=== PATIENT | male | born 1975 | race Caucasian/White ===

== ENCOUNTER 2021-08-31 10:57 | Emergency (ER) | payer BC, OTHER ==
[2021-08-31] MEDS ORDERED: MORPHINE 4 MG/ML SYR ONE (12:34)
[2021-08-31] MEDS ORDERED: METHYLPREDNISOLONE 125 MG INJ ONE (12:34)
[2021-08-31] MEDS ORDERED: LIDOCAINE 4% PATCH ONE (12:34)
[2021-08-31] MEDS ORDERED: ONDANSETRON 4 MG (ODT) TAB ONE (12:34)
--- NOTE | 2021-08-31 13:36 | EDPHYS ---
Physician Documentation [facility] Name: Lalito Tijerina Age: 46 yrs Sex: Male : 1975 Arrival Date: 08/31/2021 Time: 10:59 Bed 30 Private MD: ED Physician Eric Carpenter HPI: 08/31 12:19 This 46 yrs old Male presents to ER via Ambulatory with complaints of Leg pm1 Pain. 12:19 The patient presents with pain. The complaints affect the left hip radiating down left pm1 leg. Context: The problem was sustained at home, resulted from Chronic back pain, the patient can fully bear weight, the patient is able to ambulate. Onset: The symptoms/episode began/occurred 2 week(s) ago. Modifying factors: The symptoms are alleviated by Positioning left leg and hip. the symptoms are aggravated by movement. Associated signs and symptoms: Pertinent positives: numbness, Pertinent negatives calf tenderness, fever, Incontinence. Treatment prior to arrival includes: over the counter medications, NSAIDS, And left over codeine, tramadol, Magness. Severity of symptoms: in the emergency department the symptoms are actually worse. The patient has experienced similar episodes in the past, chronically, today's symptoms are similar, to previous Herniation of lumbar disc requiring surgical intervention. The patient has not recently seen a physician, the patient's primary care provider is Dr. short. Historical: - Allergies: 11:48 No Known Allergies; vg1 - Home Meds: 11:48 losartan oral [Active]; vg1 - PMHx: 11:48 Hypertensive disorder; vg1 - PSHx: 11:48 Back; Right Knee; vg1 - Immunization history:: Adult Immunizations up to date, Client reports having NOT received the Covid vaccine. - Social history:: Smoking status: Patient denies any tobacco usage or history of. ROS: 12:19 Constitutional: Negative for fever, chills, and weight loss, Cardiovascular: Negative pm1 for chest pain, palpitations, and edema, Respiratory: Negative for shortness of breath, cough, wheezing, and pleuritic chest pain. 12:19 Abdomen/GI: Negative for abdominal pain, nausea, vomiting, diarrhea, and constipation. 12:19 Skin: Negative for injury, rash, and discoloration, Neuro: Negative for headache, weakness, numbness, tingling, and seizure. 12:19 MS/extremity: Positive for pain, of the left hip, with radiation down left leg. 12:19 All other systems are negative. Exam: 12:19 Constitutional: This is a well developed, well nourished patient who is awake, alert, pm1 and in no acute distress. Head/Face: Normocephalic, atraumatic. 12:19 Skin: Warm, dry with normal turgor. Normal color with no rashes, no lesions, and no evidence of cellulitis. 12:19 Eyes: Exam is negative for acute changes, Extraocular movements: no acute changes. 12:19 ENT: Exam is negative for acute changes, Mouth: no acute changes, Lips: normal, moist, Oral mucosa: normal, pink and intact, moist. 12:19 Cardiovascular: Exam negative for acute changes, Rate: normal, Rhythm: regular, Pulses: no pulse deficits are appreciated. 12:19 Respiratory: Exam negative for acute changes, respiratory distress, shortness of breath. 12:19 Musculoskeletal/extremity: Extremities: all appear grossly normal, with no appreciated pain with palpation, ROM: Patient with full active range of motion to right hip right knee right ankle, Circulation is intact in all extremities. the right leg and left leg Sensation intact. 12:19 Neuro: Exam negative for acute changes, Orientation: is normal, Mentation: is normal, Motor: is normal, moves all fours. Vital Signs: 11:44 BP 132 / 101; Pulse 90; Resp 18; Temp 98.9; Pulse Ox 100% ; Weight 115.67 kg; Height 5 vg1 ft. 9 in. (175.26 cm); Pain 10/10; 11:44 Body Mass Index 37.66 (115.67 kg, 175.26 cm) vg1 MDM: 11:52 Patient medically screened. pm1 12:01 Data reviewed: vital signs. Data interpreted: Pulse oximetry: on room air is 100 %. pm1 Interpretation: normal. 13:34 Counseling: I had a detailed discussion with the patient and/or guardian regarding: the pm1 historical points, exam findings, and any diagnostic results supporting the discharge/admit diagnosis, the need for outpatient follow up, for definitive care, a neurosurgeon, MRI through Neurosurgeon or PCP, to return to the emergency department if symptoms worsen or persist or if there are any questions or concerns that arise at home. 13:47 ED course: [place] reviewed. pm1 Administered Medications: 12:19 Drug: morphine 4 mg Route: IM; Site: left gluteus; tr6 12:19 Drug: Lidoderm Patch 5 % (700 mg/patch) 1 patches Route: Topical; Site: affected area; tr6 12:19 Drug: SOLU-Medrol (methylPREDNISolone sodium succinate) 125 mg Route: IM; Site: left tr6 gluteus; 12:19 Drug: Zofran (Ondansetron) 4 mg Route: PO; tr6 Disposition Summary: 08/31/21 13:35 Discharge Ordered Location: Home pm1 Problem: new pm1 Symptoms: have improved pm1 Condition: Stable pm1 Diagnosis - Lumbago with sciatica, left side pm1 Followup: pm1 - With: Emergency Department - When: As needed - Reason: Worsening of condition Followup: pm1 - With: Private Physician - When: 2 - 3 days - Reason: Recheck today's complaints, Continuance of care, Re-evaluation by your physician Followup: pm1 - With: Lalito Lorenzana MD - When: 2 - 3 days - Reason: Recheck today's complaints, Continuance of care, Re-evaluation by your physician Discharge Instructions: - Discharge Summary Sheet pm1 - Sciatica pm1 Forms: - Medication Reconciliation Form pm1 - Thank You Letter pm1 - Antibiotic Education pm1 - Prescription Opioid Use pm1 Prescriptions: - acetaminophen-codeine 300-15 mg Oral tablet - take 2 tablet by ORAL route every 6 hours As needed; 20 tablet; Refills: 0, pm1 Product Selection Permitted - Lidoderm 5 % Topical adhesive patch,medicated - apply 1 patch by TRANSDERMAL route once daily As needed On for 12 hours and off pm1 for 12 hours in a 24-hour period; 10 patch; Refills: 0, Product Selection Permitted - Prednisone 20 mg Oral Tablet - take 3 tablets by ORAL route once daily for 5 days; 15 tablet; Refills: 0, pm1 Product Selection Permitted Addendum: 09/04/2021 00:01 Co-signature as Attending Physician, Eric Carpenter MD. r n Signatures: Eric Carpenter MD MD rn Marinas, Patrick, JANAE INTRAOPERATIVE NEURO TECH pm1 Gabriela Bone RN RN vg1 Ramnanan, Mee, RN RN tr6
--- NOTE | 2021-08-31 13:36 | ER ---
Nurse's Notes [facility] Name: Lalito Tijerina Age: 46 yrs Sex: Male : 1975 Arrival Date: 08/31/2021 Time: 10:59 Bed 30 Private MD: Diagnosis: Lumbago with sciatica, left side Presentation: 08/31 11:44 Chief complaint: Patient states: "I had back sx 8 years ago and Marie had this same pain vg1 before. About two weeks ago my lower back began to feel sore and then this I woke up with my Left leg hurting really bad, it feels like I have a pinched nerve." Pt also states pain in Left hip, Left calf, toes on Left foot feel tingling/numb. Coronavirus screen: Vaccine status: Patient reports being unvaccinated. Ebola Screen: Patient negative for fever greater than or equal to 101.5 degrees Fahrenheit, and additional compatible Ebola Virus Disease symptoms. Initial Sepsis Screen: Does the patient meet any 2 criteria? No. Patient's initial sepsis screen is negative. Does the patient have a suspected source of infection? No. Patient's initial sepsis screen is negative. Risk Assessment: Do you want to hurt yourself or someone else? Patient reports no desire to harm self or others. Onset of symptoms was August 17, 2021. 11:44 Method Of Arrival: Ambulatory vg1 11:44 Acuity: FRANKIE 3 vg1 Triage Assessment: 11:48 General: Appears in no apparent distress. uncomfortable, Behavior is calm, cooperative. vg1 Pain: Complains of pain in left leg, left hip, left calf. Historical: - Allergies: 11:48 No Known Allergies; vg1 - Home Meds: 11:48 losartan oral [Active]; vg1 - PMHx: 11:48 Hypertensive disorder; vg1 - PSHx: 11:48 Back; Right Knee; vg1 - Immunization history:: Adult Immunizations up to date, Client reports having NOT received the Covid vaccine. - Social history:: Smoking status: Patient denies any tobacco usage or history of. Screenin:46 Abuse screen: Denies threats or abuse. Denies injuries from another. Nutritional tr6 screening: No deficits noted. Tuberculosis screening: No symptoms or risk factors identified. Fall Risk None identified. Assessment: 12:00 General: Appears uncomfortable, obese, Behavior is calm, cooperative, appropriate for tr6 age. Pain: Complains of pain in left glute Pain radiates to left leg. Neuro: No deficits noted. Cardiovascular: No deficits noted. Respiratory: No deficits noted. GI: No deficits noted. : No deficits noted. EENT: No deficits noted. Derm: No deficits noted. Musculoskeletal: Reports pain in left leg. 13:47 Reassessment: Patient states symptoms have improved. tr6 Vital Signs: 11:44 BP 132 / 101; Pulse 90; Resp 18; Temp 98.9; Pulse Ox 100% ; Weight 115.67 kg; Height 5 vg1 ft. 9 in. (175.26 cm); Pain 10/10; 11:44 Body Mass Index 37.66 (115.67 kg, 175.26 cm) vg1 ED Course: 10:59 Patient arrived in ED. mr 11:48 Triage completed. vg1 11:48 Arm band placed on. vg1 11:49 Mee Dockery RN is Primary Nurse. tr6 11:51 Ralf Russell NP is PHCP. pm1 11:51 Eric Carpenter MD is Attending Physician. pm1 13:35 Lalito Lorenzana MD is Referral Physician. pm1 13:46 No provider procedures requiring assistance completed. tr6 13:47 Patient has correct armband on for positive identification. tr6 13:47 Patient did not have IV access during this emergency room visit. tr6 Administered Medications: 12:19 Drug: morphine 4 mg Route: IM; Site: left gluteus; tr6 12:19 Drug: Lidoderm Patch 5 % (700 mg/patch) 1 patches Route: Topical; Site: affected area; tr6 12:19 Drug: SOLU-Medrol (methylPREDNISolone sodium succinate) 125 mg Route: IM; Site: left tr6 gluteus; 12:19 Drug: Zofran (Ondansetron) 4 mg Route: PO; tr6 Outcome: 13:35 Discharge ordered by . pm1 13:47 Discharged to home via wheelchair. tr6 13:47 Condition: improved 13:47 Discharge instructions given to patient, Instructed on discharge instructions, follow up and referral plans. medication usage, safety practices, Demonstrated understanding of instructions, follow-up care, medications, Prescriptions given X 3. 13:49 Patient left the ED. tr6 Signatures: Renetta Sanchez YvonneRalf, JANAE RN RECOVERY pm1 Gabriela Bone RN RN vg1 Mee Dockery RN RN tr6
[2021-08-31 13:56] VITALS: BP 132/101; TEMP 98.9; O2SAT 100
== END 2021-08-31 13:49 | disposition home or self-care (01) ==
LOC: ER 10:57
DX: M54.42 Lumbago with sciatica, left side (principal); I10 Essential (primary) hypertension
CPT/HCPCS: 96372; 99283; J2930

== ENCOUNTER 2021-09-07 08:24 | Emergency (ER) | payer BC ==
[2021-09-07] MEDS ORDERED: MORPHINE 4 MG/ML SYR ONE (09:35)
[2021-09-07] MEDS ORDERED: KETOROLAC 30 MG/ML INJ ONE (09:35)
[2021-09-07] MEDS ORDERED: ONDANSETRON 4 MG (ODT) TAB ONE (09:35)
--- NOTE | 2021-09-07 10:10 | ER ---
Nurse's Notes [facility] Name: Lalito Tijerina Age: 46 yrs Sex: Male : 1975 Arrival Date: 09/07/2021 Time: 08:25 Bed 12 Private MD: Bubba Garcia V Diagnosis: Sciatica Presentation: 09/07 08:45 Chief complaint: Patient states: Sciatic pain x2 weeks, followed up with [facility] and wont jl7 see doctor until next week. Medications given at last visit here got me through for a few days. Reports pain down left leg. Coronavirus screen: At this time, the client does not indicate any symptoms associated with coronavirus-19. Ebola Screen: No symptoms or risks identified at this time. Initial Sepsis Screen: Does the patient meet any 2 criteria? No. Patient's initial sepsis screen is negative. Does the patient have a suspected source of infection? No. Patient's initial sepsis screen is negative. Risk Assessment: Do you want to hurt yourself or someone else? Patient reports no desire to harm self or others. Onset of symptoms was August 24, 2021. 08:45 Method Of Arrival: Wheelchair [facility] 08:45 Acuity: FRANKIE 4 jl7 Triage Assessment: 08:47 General: Appears in no apparent distress. uncomfortable, Behavior is calm, cooperative, jl7 appropriate for age. Pain: Complains of pain in low back area Pain radiates to left leg Pain currently is 10 out of 10 on a pain scale. Neuro: Level of Consciousness is awake, alert, obeys commands, Oriented to person, place, time, situation. Cardiovascular: Patient's skin is warm and dry. Respiratory: Airway is patent Respiratory effort is even, unlabored, Respiratory pattern is regular, symmetrical. Derm: Skin is pink, warm \T\ dry. Historical: - Allergies: 08:47 No Known Allergies; jl7 - Home Meds: 08:47 losartan Oral [Active]; gabapentin 300 mg oral cap 1 cap 3 times per day [Active]; jl7 - PMHx: 08:47 Hypertensive disorder; jl7 - PSHx: 08:47 back; right knee; jl7 - Immunization history:: Client reports having NOT received the Covid vaccine. - Social history:: Smoking status: Patient denies any tobacco usage or history of. Screenin:24 Abuse screen: Denies threats or abuse. Denies injuries from another. Nutritional jl7 screening: No deficits noted. Tuberculosis screening: No symptoms or risk factors identified. Fall Risk None identified. Assessment: 09:10 General: Appears uncomfortable, Behavior is calm, cooperative. Pain: Complains of pain aa5 in left low back Pain radiates to left leg Pain currently is 10 out of 10 on a pain scale. Quality of pain is described as sharp, shooting, Is continuous, Aggravated by increased activity, repositioning. Neuro: Level of Consciousness is awake, alert, obeys commands, Oriented to person, place, time, situation. Cardiovascular: Patient's skin is warm and dry. Respiratory: Airway is patent Respiratory effort is even, unlabored, Respiratory pattern is regular, symmetrical. GI: No signs and/or symptoms were reported involving the gastrointestinal system. : No signs and/or symptoms were reported regarding the genitourinary system. EENT: No signs and/or symptoms were reported regarding the EENT system. Derm: Skin is pink, warm \T\ dry. Musculoskeletal: Range of motion: intact in all extremities. 09:17 Reassessment: Patient is alert, oriented x 3, equal unlabored respirations, skin aa5 warm/dry/pink. 09:56 Reassessment: Patient is alert, oriented x 3, equal unlabored respirations, skin aa5 warm/dry/pink. Patient states feeling better. Patient states symptoms have improved. Pain: Pain currently is 0 out of 10 on a pain scale. 10:15 Reassessment: Patient is alert, oriented x 3, equal unlabored respirations, skin aa5 warm/dry/pink. 10:15 General: Appears comfortable. Pain: Pain currently is 0 out of 10 on a pain scale. aa5 Vital Signs: 08:45 BP 163 / 111; Pulse 88; Resp 17; Temp 97.9; Pulse Ox 99% ; Weight 115.67 kg; Height 5 jl7 ft. 9 in. (175.26 cm); Pain 10/10; 09:17 Pulse 85; Resp 20 S; Pulse Ox 98% on R/A; aa5 09:56 BP 117 / 94; Pulse 77; Resp 16 S; Pulse Ox 96% on R/A; Pain 0/10; aa5 08:45 Body Mass Index 37.66 (115.67 kg, 175.26 cm) jl7 ED Course: 08:25 Patient arrived in ED. as 08:25 Bubba Garcia MD is Private Physician. as 08:40 [facility] 08:40 David Bedolla MD is Attending Physician. [facility] 08:47 Triage completed. jl7 08:47 Arm band placed on right wrist. jl7 09:00 Yandy Thomson, RN is Primary Nurse. aa5 09:24 Patient has correct armband on for positive identification. jl7 10:15 No provider procedures requiring assistance completed. Patient did not have IV access aa5 during this emergency room visit. Administered Medications: 09:13 Drug: Zofran (Ondansetron) 4 mg Route: PO; aa5 09:56 Follow up: Response: No adverse reaction aa5 09:14 Drug: morphine 8 mg Route: IM; Site: left gluteus; aa5 09:56 Follow up: Response: No adverse reaction aa5 09:15 Drug: Ketorolac 30 mg Route: IM; Site: right gluteus; aa5 09:56 Follow up: Response: No adverse reaction aa5 Outcome: 10:10 Discharge ordered by MD. [facility] 10:15 Discharged to home via wheelchair, with significant other. aa5 10:15 Condition: improved 10:15 Discharge instructions given to patient, Instructed on discharge instructions, follow up and referral plans. medication usage, Demonstrated understanding of instructions, follow-up care, medications, Prescriptions given X 1. 10:20 Patient left the ED. aa5 Signatures: Tu Mancini PA PA Loreto Clemons Audri, RN RN aa5 Nelly Noland RN RN jl7 Corrections: (The following items were deleted from the chart) 10:29 10:25 Patient left the ED. aa5 aa5
--- NOTE | 2021-09-07 10:10 | EDPHYS ---
Physician Documentation [facility] Name: Lalito Tijerina Age: 46 yrs Sex: Male : 1975 Arrival Date: 09/07/2021 Time: 08:25 Bed 12 Private MD: Bubba Garcia V ED Physician David Bedolla HPI: 09/07 09:00 This 46 yrs old Male presents to ER via Wheelchair with complaints of Leg jmm Pain. 09:00 The patient presents with pain. Onset: The symptoms/episode began/occurred gradually. jmm Modifying factors: The symptoms are alleviated by nothing. the symptoms are aggravated by movement. This is a 46-year-old male with history hypertension the presents to the emerge department with complaints of ongoing left leg sciatica beginning approximately 1 week ago pain is exacerbated over the past few days. Denies bowel or bladder issues. Denies fever.. Historical: - Allergies: 08:47 No Known Allergies; jl7 - Home Meds: 08:47 losartan Oral [Active]; gabapentin 300 mg oral cap 1 cap 3 times per day [Active]; jl7 - PMHx: 08:47 Hypertensive disorder; jl7 - PSHx: 08:47 back; right knee; jl7 - Immunization history:: Client reports having NOT received the Covid vaccine. - Social history:: Smoking status: Patient denies any tobacco usage or history of. ROS: 09:00 Constitutional: Negative for fever, chills, and weight loss, Cardiovascular: Negative jmm for chest pain, palpitations, and edema, Respiratory: Negative for shortness of breath, cough, wheezing, and pleuritic chest pain. 09:00 Back: Positive for pain with movement, radiated pain. 09:00 All other systems are negative. Exam: 09:00 Constitutional: This is a well developed, well nourished patient who is awake, alert, jmm and in no acute distress. Head/Face: atraumatic. Eyes: EOMI, no conjunctival erythema appreciated ENT: Moist Mucus Membranes Neck: Trachea midline, Supple Chest/axilla: Normal chest wall appearance and motion. Cardiovascular: Regular rate and rhythm. No edema appreciated Respiratory: Normal respirations, no respiratory distress appreciated Abdomen/GI: Non distended, soft 09:00 MS/ Extremity: Moves all extremities, no obvious deformities appreciated, no edema noted to the lower extremities Neuro: Awake and alert, normal gait Psych: Behavior is normal, Mood is normal, Patient is cooperative and pleasant 09:00 Back: pain, that is moderate, of the left low back and left mid back. 09:00 Neuro: Extensor extensor hallacis longus intact. 09:00 Psych: Behavior/mood is pleasant, cooperative. Vital Signs: 08:45 BP 163 / 111; Pulse 88; Resp 17; Temp 97.9; Pulse Ox 99% ; Weight 115.67 kg; Height 5 jl7 ft. 9 in. (175.26 cm); Pain 10/10; 09:17 Pulse 85; Resp 20 S; Pulse Ox 98% on R/A; aa5 09:56 BP 117 / 94; Pulse 77; Resp 16 S; Pulse Ox 96% on R/A; Pain 0/10; aa5 08:45 Body Mass Index 37.66 (115.67 kg, 175.26 cm) jl7 MDM: 09:00 Patient medically screened. [facility] 09:05 Data reviewed: vital signs, nurses notes. Counseling: I had a detailed discussion with jmm the patient and/or guardian regarding: the historical points, exam findings, and any diagnostic results supporting the discharge/admit diagnosis. 10:08 Counseling: I had a detailed discussion with the patient and/or guardian regarding: the jmm need for outpatient follow up, to return to the emergency department if symptoms worsen or persist or if there are any questions or concerns that arise at home. Administered Medications: 09:13 Drug: Zofran (Ondansetron) 4 mg Route: PO; aa5 09:56 Follow up: Response: No adverse reaction aa5 09:14 Drug: morphine 8 mg Route: IM; Site: left gluteus; aa5 09:56 Follow up: Response: No adverse reaction aa5 09:15 Drug: Ketorolac 30 mg Route: IM; Site: right gluteus; aa5 09:56 Follow up: Response: No adverse reaction aa5 Disposition: 16:25 Co-signature as Attending Physician, David Bedolla MD I agree with the assessment and kdr plan of care. Disposition Summary: 09/07/21 10:10 Discharge Ordered Location: Home [facility] Condition: Stable [facility] Diagnosis - Sciatica [facility] Followup: [facility] - With: Private Physician - When: 2 - 3 days - Reason: Recheck today's complaints, Continuance of care, Re-evaluation by your physician Discharge Instructions: - Discharge Summary Sheet yunier Marcha yunier Forms: - Medication Reconciliation Form yunier - Thank You Letter yunier - Antibiotic Education yunier - Prescription Opioid Use yunier Prescriptions: - Zanaflex 4 mg Oral Tablet - take 1 tablet by ORAL route every 8 hours As needed; 20 tablet; Refills: 0, jmm Product Selection Permitted Signatures: David Bedolla MD MD kdr Mickail, Joel, PA PA jmm Calderon, Audri, RN RN aa5 Nelly Noland RN RN jl7
[2021-09-07 10:30] VITALS: TEMP 97.9
[2021-09-07 10:33] VITALS: BP 117/94; O2SAT 96
== END 2021-09-07 10:25 | disposition home or self-care (01) ==
LOC: ER 08:24
DX: M54.32 Sciatica, left side (principal); I10 Essential (primary) hypertension
CPT/HCPCS: 96372; 99283